=== PATIENT | male | born 1975 | race Caucasian/White ===

== ENCOUNTER 2024-10-07 12:29 | Emergency (ER) | payer OTHER ==
[~2024-10-07] VITALS: Ht 172.7 cm; Wt 94.0 kg
[~2024-10-07 12:29] MED LIST: CIPRO500 MG PO; HYDROCODON-ACE1 EA10 PO; METRONIDAZOLE500 MG PO; ONDANSETRON ODT4 MG PO; PROMETHAZINE HC25 M1 PO
[2024-10-07] MEDS ORDERED: NITROGLYCERIN 0.4 MG SUBL SL PRN (12:45)
[2024-10-07 12:55] LABS: BASOPHILS 1.2 % (0.2-1.2); EOSINOPHILS 2.6 % (0.8-7.0); LYMPHOCYTES 13.8 % (21.8-53.1); MCH 30.2 PG (25.7-32.2); MCHC 34.6 g/dL (32.3-36.5); MCV 87.2 fL (79.0-92.2); MONOCYTES 5.1 % (5.3-12.2); NEUTROPHILS 77.0 % (34.0-67.9); RBC 6.10 M/uL (4.63-6.08)
[2024-10-07 13:15] LABS: ALT (SGPT) 30.0 U/L (14-59); AST (SGOT) 20.0 U/L (15-37); GLOMERULAR FILTRATION RATE,EST 96.0 mL/min (>60); PROTEIN, TOTAL 6.9 g/dL (6.4-8.2); UREA NITROGEN 11.0 mg/dL (7-18)
[2024-10-07] MEDS ORDERED: NORVASC5 MG PO (15:06)
[2024-10-07] MEDS ORDERED: AMLODIPINE BESYLATE 5 MG TAB PO ONE (15:15)
[2024-10-07 15:22] VITALS: BP 155/108
--- NOTE | 2024-10-08 21:21 | EKG ---
[facility] [address], [place] [address] Signed Normal sinus rhythm Left posterior fascicular block ST \T\ T wave abnormality, consider anterior ischemia Prolonged QT Abnormal ECG No previous ECGs available Confirmed by Ha Mcclain DO ([id number]) on 10/08/2024 9:21:13 PM Electronically Signed By: HA MCCLAIN DO 10/08/242120 PATIENT NAME: CHELSEA DAVILA Electrocardiogram DATE OF : 75 PHYSICIAN: HA CMCLAIN DO REPORT #: [id number] REPORT IS CONFIDENTIAL AND NOT TO BE RELEASED WITHOUT AUTHORIZATION
== END 2024-10-07 15:24 | disposition home or self-care (01) ==
LOC: ED 12:29
PROVIDERS: Emergency Medicine
DX: R07.89 Other chest pain (principal); R03.0 Elevated blood-pressure reading, without diagnosis of hypertension; Z88.1 Allergy status to other antibiotic agents
CPT/HCPCS: 36415; 71045; 80053; 83735; 84484; 85025; 93005; 93010; 99285-25